=== PATIENT | male | born 1930 | race Caucasian/White ===

== ENCOUNTER 2017-05-13 14:15 | Emergency (ER) | payer MEDICARE, BC ==
[~2017-05-13] VITALS: Ht 188 cm; Wt 85.0 kg
[~2017-05-13 14:15] MED LIST: ADLT ASA LOW81 MG PO; ARICEPT PO; ARICEPT10 MG PO; CIMETIDINE400 M1 PO; HYZAAR1 TA1 PO; LEVAQUIN750 MG PO; LIPITOR40 M1 PO; LIPITOR40 MG PO; NIACIN ER500 M1 PO; TOBRAMYCIN0.3 % OU; VIAGRA100 MG PO
[2017-05-13] MEDS ORDERED: RAPAFLO8 MG PO (17:01)
[2017-05-13] MEDS ORDERED: NIASPAN500 MG PO (17:02)
[2017-05-13] MEDS ORDERED: ATORVASTATIN CA40 MG PO (17:02)
[2017-05-13] MEDS ORDERED: ARICEPT5 MG PO (17:03)
[2017-05-13] MEDS ORDERED: EC-NAPROSYN500 MG PO (17:59)
[2017-05-13] MEDS ORDERED: TRAMADOL HYDROC50 MG PO (17:59)
[2017-05-13 18:30] VITALS: BP 119/74
== END 2017-05-13 18:30 | disposition home or self-care (01) ==
LOC: ED 14:15
DX: S32.592A Other specified fracture of left pubis, initial encounter for closed fracture (principal); F03.90 Unspecified dementia, unspecified severity, without behavioral disturbance, psychotic disturbance, mood disturbance, and anxiety; E78.00 Pure hypercholesterolemia, unspecified; W18.30XA Fall on same level, unspecified, initial encounter; Y92.008 Other place in unspecified non-institutional (private) residence as the place of occurrence of the external cause

== ENCOUNTER → 2019-01-14 | Outpatient (REF) | payer MEDICARE, BC ==
[~2019-01-14] MED LIST changes: +ARICEPT5 MG PO; +ATORVASTATIN CA40 MG PO; +B-121000 MC1 PO; +B-1250 MCG PO; +CIMETIDINE400 MG PO; +DONEPEZIL10 MG PO; +EC-NAPROSYN500 MG PO; +ESCITALOPRAM OXA5 MG PO; +FAMOTIDINE20 M1 PO; +FOLIC ACID1 MG PO; +LEXAPRO10 MG PO; +LOSARTAN POT25 MG PO; +MEMANTINE HCL10 MG PO; +NIASPAN500 MG PO; +NORCO1 TA1 PO; +OFLOXACIN0.3 %; +RAPAFLO8 MG PO; +TRAMADOL HYDROC50 MG PO
== END | disposition home or self-care (01) ==
LOC: LABSPEC 11:04
PROVIDERS: ATTEND Nurse Practitioner Family
DX: L02.818 Cutaneous abscess of other sites (principal)

== ENCOUNTER → 2019-01-19 | Outpatient (REF) | payer MEDICARE, BC ==
[2019-01-19 10:38] VITALS: BP 134/63
== END ==
LOC: FIORUCCI 09:51
PROVIDERS: ATTEND Surgery
DX: S21.209A Unspecified open wound of unspecified back wall of thorax without penetration into thoracic cavity, initial encounter (principal)

== ENCOUNTER → 2019-01-19 | Outpatient (REF) | payer MEDICARE, BC | END | disposition home or self-care (01) | LOC: LABSPEC 10:00 | PROVIDERS: ATTEND Nurse Practitioner Family | DX: S31.000D Unspecified open wound of lower back and pelvis without penetration into retroperitoneum, subsequent encounter (principal) ==

== ENCOUNTER 2019-02-02 08:37 | Emergency (ER) | payer MEDICARE, BC ==
[~2019-02-02] VITALS: Ht 188 cm; Wt 80.0 kg
[~2019-02-02 08:37] MED LIST changes: -B-1250 MCG PO; -DONEPEZIL10 MG PO; -ESCITALOPRAM OXA5 MG PO; -FAMOTIDINE20 M1 PO; -LOSARTAN POT25 MG PO; -MEMANTINE HCL10 MG PO; -NORCO1 TA1 PO
[2019-02-02] MEDS ORDERED: ESCITALOPRAM OXA5 MG PO (10:06)
[2019-02-02] MEDS ORDERED: DONEPEZIL10 MG PO (10:10)
[2019-02-02] MEDS ORDERED: MEMANTINE HCL10 MG PO (10:11)
[2019-02-02 10:58] LABS: HEMATOCRIT 34.1 % (39.0-50.0); HEMOGLOBIN 11.3 g/dl (14.0-18.0); IMMATURE GRANULOCYTES 0.4 % (0.0-5.0); MEAN CELL VOLUME 106.2 fL CALC (80.0-100.0); MEAN CORPUSCULAR HGB 35.2 pG CALC (26.0-32.0); MEAN CORPUSCULAR HGB CONC 33.1 g/L CALC (32.0-36.0); NEUT# 6.18 thou/uL (1.82-7.42); RED BLOOD COUNT 3.21 mill/uL (4.70-6.10); RED CELL DISTRI WIDTH 13.7 % (11.5-15.5)
[2019-02-02 11:55] LABS: ANION GAP 12 (6-22 (CALC)); BUN 15 mg/dL (8-23); BUN/CREATININE RATIO 20 (12-20 (CALC)); CARBON DIOXIDE 30 mmol/l (22-30); CHLORIDE 101 mmol/l (95-108); CREATININE 0.8 mg/dL (0.7-1.3); GFR > 60 ML/MIN (>=60 (CALC)); GFR FOR AFR.AMER. > 60 ML/MIN (>=60 (CALC)); POTASSIUM 3.8 mmol/l (3.5-5.1); SODIUM 139 mmol/l (137-146)
[2019-02-02 14:47] VITALS: BP 131/74
== END 2019-02-02 14:47 ==
LOC: ED 08:37
PROVIDERS: Family Medicine
DX: S22.089A Unspecified fracture of T11-T12 vertebra, initial encounter for closed fracture (principal); S32.019A Unspecified fracture of first lumbar vertebra, initial encounter for closed fracture; S90.32XA Contusion of left foot, initial encounter; S90.31XA Contusion of right foot, initial encounter; W01.0XXA Fall on same level from slipping, tripping and stumbling without subsequent striking against object, initial encounter; Y92.009 Unspecified place in unspecified non-institutional (private) residence as the place of occurrence of the external cause

== ENCOUNTER 2019-02-14 13:51 | Observation (INO) | payer MEDICARE, BC ==
[~2019-02-14] VITALS: Ht 188 cm; Wt 7.1 kg
[~2019-02-14 13:51] MED LIST changes: +DONEPEZIL10 MG PO; +ESCITALOPRAM OXA5 MG PO; +MEMANTINE HCL10 MG PO
[2019-02-14 15:01] LABS: HEMATOCRIT 37.5 % (39.0-50.0); HEMOGLOBIN 12.3 g/dl (14.0-18.0); IMMATURE GRANULOCYTES 0.3 % (0.0-5.0); MEAN CELL VOLUME 105.3 fL CALC (80.0-100.0); MEAN CORPUSCULAR HGB 34.6 pG CALC (26.0-32.0); MEAN CORPUSCULAR HGB CONC 32.8 g/L CALC (32.0-36.0); NEUT# 5.63 thou/uL (1.82-7.42); RED BLOOD COUNT 3.56 mill/uL (4.70-6.10); RED CELL DISTRI WIDTH 13.2 % (11.5-15.5)
[2019-02-14 15:03] LABS: ALBUMIN 3.8 g/dL (3.2-5.0); ALKALINE PHOSPHATASE 111 u/l (38-126); ANION GAP 13 (6-22 (CALC)); BUN 21 mg/dL (8-23); BUN/CREATININE RATIO 27 (12-20 (CALC)); CARBON DIOXIDE 30 mmol/l (22-30); CHLORIDE 101 mmol/l (95-108); CREATININE 0.8 mg/dL (0.7-1.3); GFR > 60 ML/MIN (>=60 (CALC)); GFR FOR AFR.AMER. > 60 ML/MIN (>=60 (CALC)); SGOT/AST 39 u/l (19-48); SODIUM 139 mmol/l (137-146); TOTAL PROTEIN 7.4 g/dL (6.3-8.2)
[2019-02-14 16:09] LABS: URINE BLOOD DIPSTICK NEGATIVE (NEGATIVE); URINE COLOR YELLOW; URINE GLUCOSE - DIPSTICK NEGATIVE (NEGATIVE); URINE KETONE NEGATIVE (NEGATIVE); URINE LEUK ESTERASE NEGATIVE (NEGATIVE); URINE NITRITE - DIPSTICK NEGATIVE (Negative); URINE PROTEIN - DIPSTICK NEGATIVE (NEG-TRACE); URINE SPECIFIC GRAVITY 1.025
[2019-02-14 16:14] LABS: URINE BILIRUBIN - DIPSTICK SMALL (NEGATIVE)
[2019-02-14] MEDS ORDERED: LOSARTAN POT25 MG PO (16:30)
[2019-02-14] MEDS ORDERED: FAMOTIDINE20 M1 PO (16:32)
[2019-02-14] MEDS ORDERED: B-1250 MCG PO (16:34)
[2019-02-14] MEDS ORDERED: NORCO1 TA1 PO (16:36)
[2019-02-14 18:34] VITALS: BP 149/79
[2019-02-14 23:00] VITALS: BP 158/79
[2019-02-15 04:53] LABS: HEMOGLOBIN 11.5 g/dl (14.0-18.0); IMMATURE GRANULOCYTES 0.2 % (0.0-5.0); MEAN CELL VOLUME 105.1 fL CALC (80.0-100.0); MEAN CORPUSCULAR HGB 34.5 pG CALC (26.0-32.0); MEAN CORPUSCULAR HGB CONC 32.9 g/L CALC (32.0-36.0); NEUT# 3.37 thou/uL (1.82-7.42); RED BLOOD COUNT 3.33 mill/uL (4.70-6.10); RED CELL DISTRI WIDTH 13.1 % (11.5-15.5)
[2019-02-15 05:14] LABS: ANION GAP 10 (6-22 (CALC)); BUN 16 mg/dL (8-23); BUN/CREATININE RATIO 25 (12-20 (CALC)); CARBON DIOXIDE 30 mmol/l (22-30); CHLORIDE 103 mmol/l (95-108); CREATININE 0.6 mg/dL (0.7-1.3); GFR > 60 ML/MIN (>=60 (CALC)); GFR FOR AFR.AMER. > 60 ML/MIN (>=60 (CALC)); POTASSIUM 3.4 mmol/l (3.5-5.1); SODIUM 139 mmol/l (137-146)
[2019-02-15 07:35] VITALS: BP 144/73
[2019-02-15] MEDS ORDERED: NORCO1 TA1 PO (12:30)
[2019-02-15 13:00] VITALS: BP 139/68
== END 2019-02-15 13:50 ==
LOC: ED 13:51 → ED-I 16:35 → ED 17:14 → ICU 17:15
PROVIDERS: Emergency Medicine; ADMIT Internal Medicine; ATTEND Internal Medicine
DX: R55 Syncope and collapse (principal); E86.0 Dehydration; F03.90 Unspecified dementia, unspecified severity, without behavioral disturbance, psychotic disturbance, mood disturbance, and anxiety; I10 Essential (primary) hypertension; E78.5 Hyperlipidemia, unspecified; N40.0 Benign prostatic hyperplasia without lower urinary tract symptoms; F32.9 Major depressive disorder, single episode, unspecified; D64.9 Anemia, unspecified; H91.90 Unspecified hearing loss, unspecified ear; S32.020D Wedge compression fracture of second lumbar vertebra, subsequent encounter for fracture with routine healing; S32.010D Wedge compression fracture of first lumbar vertebra, subsequent encounter for fracture with routine healing; W19.XXXD Unspecified fall, subsequent encounter

== ENCOUNTER 2019-02-27 06:30 | Emergency (ER) | payer MEDICARE, BC ==
[~2019-02-27] VITALS: Ht 188 cm; Wt 77.0 kg
[~2019-02-27 06:30] MED LIST changes: +B-1250 MCG PO; +FAMOTIDINE20 M1 PO; +LOSARTAN POT25 MG PO; +NORCO1 TA1 PO
[2019-02-27 07:05] LABS: HEMOGLOBIN 11.4 g/dl (14.0-18.0); IMMATURE GRANULOCYTES 0.3 % (0.0-5.0); MEAN CELL VOLUME 104.8 fL CALC (80.0-100.0); MEAN CORPUSCULAR HGB 34.1 pG CALC (26.0-32.0); MEAN CORPUSCULAR HGB CONC 32.6 g/L CALC (32.0-36.0); NEUT# 8.89 thou/uL (1.82-7.42); RED BLOOD COUNT 3.34 mill/uL (4.70-6.10); RED CELL DISTRI WIDTH 13.3 % (11.5-15.5)
[2019-02-27 07:30] LABS: ALBUMIN 3.8 g/dL (3.2-5.0); ALKALINE PHOSPHATASE 136 u/l (38-126); ANION GAP 16 (6-22 (CALC)); BILIRUBIN, TOTAL 1.4 mg/dL (0.0-1.4); BUN 17 mg/dL (8-23); BUN/CREATININE RATIO 19 (12-20 (CALC)); CARBON DIOXIDE 25 mmol/l (22-30); CHLORIDE 102 mmol/l (95-108); CREATININE 0.9 mg/dL (0.7-1.3); GFR > 60 ML/MIN (>=60 (CALC)); GFR FOR AFR.AMER. > 60 ML/MIN (>=60 (CALC)); MAGNESIUM 1.9 mg/dL (1.6-2.3); POTASSIUM 3.4 mmol/l (3.5-5.1); SGOT/AST 24 u/l (19-48); SODIUM 139 mmol/l (137-146); TOTAL PROTEIN 6.7 g/dL (6.3-8.2)
[2019-02-27] MEDS ORDERED: KEPPRA500 M2 PO (08:45)
[2019-02-27 08:46] VITALS: BP 104/55
== END 2019-02-27 09:15 ==
LOC: ED 06:30
PROVIDERS: Family Medicine
DX: R56.9 Unspecified convulsions (principal); R41.82 Altered mental status, unspecified; F03.90 Unspecified dementia, unspecified severity, without behavioral disturbance, psychotic disturbance, mood disturbance, and anxiety; E78.5 Hyperlipidemia, unspecified; Y92.129 Unspecified place in nursing home as the place of occurrence of the external cause

== ENCOUNTER 2019-03-06 11:56 | Inpatient (IN) | payer MEDICARE, BC ==
[~2019-03-06] VITALS: Ht 188 cm; Wt 80.0 kg
[2019-03-06] VITALS (8 sets, daily range): BP systolic 38–105; BP diastolic 00–56
[~2019-03-06 11:56] MED LIST changes: +KEPPRA500 M2 PO
[2019-03-06 12:51] LABS: HEMATOCRIT 36.6 % (39.0-50.0); HEMOGLOBIN 11.6 g/dl (14.0-18.0); IMMATURE GRANULOCYTES 0.3 % (0.0-5.0); MEAN CORPUSCULAR HGB 34.2 pG CALC (26.0-32.0); MEAN CORPUSCULAR HGB CONC 31.7 g/L CALC (32.0-36.0); NEUT# 7.8 thou/uL (1.82-7.42); RED BLOOD COUNT 3.39 mill/uL (4.70-6.10); RED CELL DISTRI WIDTH 13.9 % (11.5-15.5)
[2019-03-06 12:55] LABS: ALBUMIN 3.7 g/dL (3.2-5.0); ALKALINE PHOSPHATASE 115 u/l (38-126); BILIRUBIN, TOTAL 0.9 mg/dL (0.0-1.4); CARBON DIOXIDE 20 mmol/l (22-30); CHLORIDE 98 mmol/l (95-108); LIPASE 137 u/l (23-300); PROTHROMBIN TIME 10.3 SECONDS (9.0-12.5); SGOT/AST 27 u/l (19-48); SODIUM 141 mmol/l (137-146); TOTAL PROTEIN 7.1 g/dL (6.3-8.2)
[2019-03-06 12:57] LABS: ANION GAP 28 (6-22 (CALC)); BUN/CREATININE RATIO 10 (12-20 (CALC)); GFR 5 ML/MIN (>=60 (CALC)); GFR FOR AFR.AMER. 6 ML/MIN (>=60 (CALC)); POTASSIUM 4.8 mmol/l (3.5-5.1)
[2019-03-06 12:58] LABS: BUN 95 mg/dL (8-23); CREATININE 9.6 mg/dL (0.7-1.3)
[2019-03-06 13:07] LABS: MYOGLOBIN 124 ng/mL (0 - 121)
[2019-03-06 15:16] LABS: COCAINE NEGATIVE (NEGATIVE); TETRAHYDROCANNABIONOL NEGATIVE (NEGATIVE)
[2019-03-06 15:17] LABS: BARBITURATES POSITIVE (NEGATIVE); METHADONE NEGATIVE (NEGATIVE); OXCYCODONE NEGATIVE (NEGATIVE); TRICYLIC ANTIDEPRESSANTS NEGATIVE (NEGATIVE)
[2019-03-06 15:24] LABS: URINE BILIRUBIN - DIPSTICK NEGATIVE (NEGATIVE); URINE BLOOD DIPSTICK LARGE (NEGATIVE); URINE COLOR DK. YELLOW; URINE GLUCOSE - DIPSTICK NEGATIVE (NEGATIVE); URINE KETONE TRACE mg/dL (NEGATIVE); URINE LEUK ESTERASE NEGATIVE (NEGATIVE); URINE NITRITE - DIPSTICK NEGATIVE (Negative); URINE PH 5.5 (4.5-8.0); URINE PROTEIN - DIPSTICK 100 mg/dL (NEG-TRACE); URINE RBC TNTC RBC/hpf (0-5); URINE SPECIFIC GRAVITY 1.025; URINE SQUAMOUS EPITHELIAL CELL FEW EPI/hpf (0-FEW); URINE UROBILINOGEN - DIPSTICK 0.2 E.U./dL (0.2)
== END 2019-03-06 22:15 | disposition expired | DRG 871 ==
LOC: ED 11:56 → ED-I 15:14 → ED 15:57 → ICU 15:58
PROVIDERS: Family Medicine; ADMIT Internal Medicine; ATTEND Internal Medicine
PROC: 0BH17EZ Insertion of Endotracheal Airway into Trachea, Via Natural or Artificial Opening (ICD-10-PCS; principal; 2019-03-06)
PROC: 5A1935Z Respiratory Ventilation, Less than 24 Consecutive Hours (ICD-10-PCS; 2019-03-06)
PROC: 02HV33Z Insertion of Infusion Device into Superior Vena Cava, Percutaneous Approach (ICD-10-PCS; 2019-03-06)
PROC: 0T9B70Z Drainage of Bladder with Drainage Device, Via Natural or Artificial Opening (ICD-10-PCS; 2019-03-06)
DX: A41.9 Sepsis, unspecified organism (principal); I63.9 Cerebral infarction, unspecified; R65.21 Severe sepsis with septic shock; J96.00 Acute respiratory failure, unspecified whether with hypoxia or hypercapnia; N17.9 Acute kidney failure, unspecified; R29.738 NIHSS score 38; I95.9 Hypotension, unspecified; F03.90 Unspecified dementia, unspecified severity, without behavioral disturbance, psychotic disturbance, mood disturbance, and anxiety; E78.5 Hyperlipidemia, unspecified; R33.9 Retention of urine, unspecified; Z66 Do not resuscitate; Z51.5 Encounter for palliative care; Z86.73 Personal history of transient ischemic attack (TIA), and cerebral infarction without residual deficits
CPT/HCPCS: J0692